=== PATIENT | female | born 1990 | race African-American/Black ===

== ENCOUNTER 2021-02-08 01:46 | Emergency (ER) | payer OTHER ==
[~2021-02-08] VITALS: Ht 157.5 cm; Wt 55.8 kg
[2021-02-08] MEDS ORDERED: IOPAMIDOL 370 MG/ML 200 ML INFUS..BTL INJ ONE (02:53)
[2021-02-08] MEDS ORDERED: SODIUM CHLORIDE 0.9% 50ML 50 ML ONE (02:54)
[2021-02-08] MEDS ORDERED: PIPER-TAZ 3.375 GM 50 ML ONE (04:12)
[2021-02-08] MEDS ORDERED: PIPER-TAZ 3.375 GM 50 ML IV ONE (04:15)
[2021-02-08] MEDS ORDERED: AUGMENTIN 875-1 EACH PO (04:51)
== END 2021-02-08 05:07 | disposition home or self-care (01) ==
LOC: FSED 02:30
DX: K12.2 Cellulitis and abscess of mouth (principal)
CPT/HCPCS: 70487; 99284; J2543; Q9967